=== PATIENT | male | born 1965 | race Native Hawaiian/Other Pacific Islander ===

== ENCOUNTER 2021-07-09 21:55 | Emergency (ER) | payer SELFPAY ==
[2021-07-09 22:22] VITALS: BP 176/87
[2021-07-09] MEDS ORDERED: KETOROLAC 10 MG TAB PO ONE (23:52)
--- NOTE | 2021-07-10 02:25 | Emergency Department Report ---
ED Headache HPI - General Chief Complaint: Headache Stated Complaint: BLOOD PRESSURE/VISION CLOUDY Time Seen by Provider: 07/09/21 23:37 Source: patient, family, RN notes reviewed Exam Limitations: no limitations - History of Present Illness Initial Comments: headaches and blurry vision for about 10 days Timing/Duration: constant Quality: moderate Head Injury Location: frontal, parietal Recent Head Trauma: no recent headache/trauma Associated Symptoms: vision changes Allergies/Adverse Reactions: Allergies No Known Allergies Allergy (Unverified 07/09/21 22:22) ED Review of Systems ROS: Stated complaint: BLOOD PRESSURE/VISION CLOUDY Other details as noted in HPI Constitutional: denies: chills, fever Eyes: denies: eye pain, eye discharge, vision change ENT: denies: ear pain, throat pain Respiratory: denies: cough, shortness of breath, wheezing Cardiovascular: denies: chest pain, palpitations Endocrine: no symptoms reported Gastrointestinal: denies: abdominal pain, nausea, diarrhea Genitourinary: denies: urgency, dysuria Musculoskeletal: denies: back pain, joint swelling, arthralgia Skin: denies: rash, lesions Neurological: denies: headache, weakness, paresthesias Psychiatric: denies: anxiety, depression Hematological/Lymphatic: denies: easy bleeding, easy bruising ED Past Medical Hx - Past Medical History Previous Medical History?: No - Surgical History Past Surgical History?: No ED Physical Exam - General Limitations: No Limitations General appearance: alert, in no apparent distress - Head Head exam: Present: atraumatic, normocephalic - Eye Eye exam: Present: normal appearance - ENT ENT exam: Present: mucous membranes moist - Neck Neck exam: Present: normal inspection - Respiratory Respiratory exam: Present: normal lung sounds bilaterally. Absent: respiratory distress - Cardiovascular Cardiovascular Exam: Present: regular rate, normal rhythm. Absent: systolic murmur, diastolic murmur, rubs, gallop - GI/Abdominal GI/Abdominal exam: Present: soft, normal bowel sounds - Rectal Rectal exam: Present: deferred - Extremities Exam Extremities exam: Present: normal inspection - Back Exam Back exam: Present: normal inspection - Neurological Exam Neurological exam: Present: alert, oriented X3 - Psychiatric Psychiatric exam: Present: normal affect, normal mood - Skin Skin exam: Present: warm, dry, intact, normal color. Absent: rash ED Course Vital Signs 07/09/21 07/10/21 22:21 00:11 Temperature 97.8 F Pulse Rate 80 Respiratory 18 14 Rate Blood Pressure 176/87 O2 Sat by Pulse 99 Oximetry - Reevaluation(s) Reevaluation #1: 07/10/21 02:24 BP normal , head ct negative , reposnded to pain meds, no tonopen here, but no gluacomatous gross changes will refer to opth urgently Critical care attestation.: If time is entered above; I have spent that time in minutes in the direct care of this critically ill patient, excluding procedure time. ED Disposition Clinical Impression: Headache Disposition: 01 HOME / SELF CARE / HOMELESS Is pt being admited?: No Does the pt Need Aspirin: No Condition: Stable Instructions: Spinal Anesthesia and Epidural Anesthesia, Care After
== END 2021-07-10 00:09 | disposition home or self-care (01) ==
LOC: ED 21:55
DX: R51.9 Headache, unspecified (principal)
CPT/HCPCS: 70450; 99283